=== PATIENT | male | born 1940 | race Caucasian/White ===

== ENCOUNTER 2020-05-31 16:12 | Emergency (ER) | payer MEDICARE, OTHER, SELFPAY ==
[2020-05-31 16:17] VITALS: BP 115/72; PULSE 71; RESP 16; TEMP 36.4; O2SAT 96; BMI 26.4
--- NOTE | 2020-05-31 16:44 | DI.CT.S_ITS ---
PROCEDURE: CT ABDOMEN PELVIS W CON INDICATIONS: rlq pain TECHNIQUE: After the administration of intravenous contrast, 5 mm thick sections acquired from the diaphragm to the symphysis. 5 mm coronal and sagittal reformats were acquired. For radiation dose reduction, the following was used: automated exposure control, adjustment of mA and/or kV according to patient size. COMPARISON: None. FINDINGS: Image quality: Excellent. ABDOMEN: Lung bases: Lung bases are clear. Calcified plaques noted in the lung bases. Heart size is normal. Atherosclerotic calcifications noted in the visualized coronary vasculature. Solid organs: Liver is normal in size and enhancement. 2.3 centimeter hepatic cyst. Diffuse fatty infiltration of the liver. Gallbladder is within normal limits Biliary system is non dilated. Pancreas enhances normally. Spleen is normal in size and enhancement. 2.0 and 2.8 centimeter right adrenal nodules which have density measurements of 40 5:00 a.m. 48 Hounsfield units, respectively. Kidneys demonstrate normal size and enhancement, without hydronephrosis. Peritoneum and bowel: Bowel loops demonstrate normal wall thickness and caliber. No free fluid or air. The appendix is normal. Nodes and vessels: No retroperitoneal or mesenteric adenopathy by size criteria. Moderate amount of stool noted in the colon. Aorta and inferior vena cava are normal in size. Scattered atherosclerotic calcifications involving the abdominal and pelvic vasculature. Miscellaneous: No ventral hernias. PELVIS: Genitourinary: Bladder wall thickness is normal. Miscellaneous: No inguinal adenopathy. Small bilateral fat containing inguinal hernias. Bones: Lumbosacral spine fixation hardware. No suspicious bony lesions. No vertebral body compression fractures. Spine degenerative disc disease and facet arthropathy. Severe bilateral hip osteoarthritis. IMPRESSION: 1. Appendix is normal. 2. No free intraperitoneal fluid or air. 3. No dilated loops of bowel. 4. Moderate fecal loading throughout the colon. 5. 2.0 and 2.8 centimeter soft tissue density right adrenal nodules. Malignancy cannot be excluded. Recommend dedicated CT scan of the abdomen with and without contrast (adrenal protocol) or MRI adrenal protocol for definitive characterization when clinically feasible. 6. Calcified bibasilar pleural plaques concerning for specific related disease. 7. Atherosclerosis including dense atherosclerotic calcifications in the visualized coronary vasculature. 8. Fat containing bilateral inguinal hernias. Dictated by: Amaya Carson MD, PhD on 05/31/2020 at 17:21 Approved by: Amaya Carson MD, PhD on 05/31/2020 at 17:27
[2020-05-31 16:49] LABS: Add Manual Diff / Slide Review NO; Basophils Absolute Auto 100 /uL (0-100); Basophils Percent Auto 1.2 % (0-2); Eosinophils Absolute Auto 100 /uL (0-450); Eosinophils Percent Auto 1.2 % (2-4); Hematocrit 44.8 % (41-53); Hemoglobin 15.5 g/dL (13.5-17.5); Lymphocytes Absolute Auto 1800 /uL (1100-4500); Lymphocytes Percent Auto 27.1 % (25-40); Mean Corpuscular HGB Conc 34.6 % (30-36); Mean Corpuscular Hemoglobin 32.4 PG (26-34); Mean Corpuscular Volume 93.5 fL (80-100); Monocytes Absolute Auto 500 /uL (0-900); Monocytes Percent Auto 8.2 % (3-14); Neutrophils Absolute Auto 4100 /uL (1500-7000); Neutrophils Percent Auto 62.3 % (50-75); Platelet Count 218 X10^3/uL (150-400); Red Cell Distribution Width 13.4 % (11.6-14.8); White Blood Cell Count 6.6 X10^3/uL (4.5-11.0)
[2020-05-31] MEDS: MORPHINE 2 MG/ML INJ IV (16:52)
[2020-05-31] MEDS: SODIUM CHLORIDE 0.9% 1,000 ML 150 ML IV (16:53)
[2020-05-31 16:55] VITALS: PULSE 56; O2SAT 100
[2020-05-31 16:59] LABS: Alanine Aminotransferase 22 IU/L (<50); Albumin 4.5 g/dL (3.5-5.0); Albumin Globulin Ratio 1.2 (1.0-2.8); Alkaline Phosphatase 87 U/L (38-126); Aspartate Aminotransferase 33 IU/L (17-59); Bilirubin Total 0.6 mg/dL (0.2-1.3); Blood Urea Nitrogen 16 mg/dL (9-20); Carbon Dioxide 25 mmol/L (22-32); Chloride 105 mmol/L (98-107); Estimated Glomerular Filt Rate > 60.0 mL/min (>60); Globulin 3.8 g/dL (1.7-4.1); Glucose 97 mg/dL (80-110); HEMOLYSIS 15 (0-50); Lipase 70 U/L (23-300); Potassium 4.3 mmol/L (3.4-5.1); Sodium 140 mmol/L (137-145); Total Protein 8.3 g/dL (6.3-8.2)
[2020-05-31 17:00] VITALS: BP 109/63
--- NOTE | 2020-05-31 17:08 | ED_ITS ---
HPI - Abdominal Pain General Chief Complaint: Abdominal Pain Stated Complaint: abd pain - sent by MD Time Seen by Provider: 05/31/20 16:13 Source: patient Mode of arrival: Ambulatory Limitations: no limitations History of Present Illness HPI narrative: Patient is a gene 80-year-old male who presents with right low er quadrant pain ongoing for about the last 1 week. He says it is not really going away he feels of band kind of around his abdomen. No nausea vomiting no bloody stools or diarrhea. He has not had any fever or chills. Nothing seems to make it better or worse all the moving does hurt. MD complaint: abdominal pain Onset (ago): week(s) (1) Pain Consistency: constant Location: RLQ Quality: sharp Related Data Allergies Allergy/AdvReac Type Severity Reaction Status Date / Time No Known Drug Allergies Allergy Verified 05/31/20 16:23 Review of Systems Review of Systems Narrative: GENERAL: Denies chills, fatigue, malaise, fever, sweats, travel HEENT: Denies sinus pain, ear pain, sore throat, difficulty swallowing, neck pain RESPIRATORY: Denies dyspnea, cough, wheezing, hemoptysis, sputum. CARDIOVASCULAR: Denies chest pain, palpitations, orthopnea, edema GASTROINTESTINAL: See HPI : Denies dysuria, frequency, incontinence, hematuria, urinary retention, flank pain. MUSCULOSKELETAL: Denies weakness, joint pain, or bony pain SKIN: No rash, no erythema, no pruritus NEUROLOGIC: Denies weakness, dizziness, headache, numbness, change in speech, confusion PSYCHIATRIC: No concerning psychosocial issues. 12 point review of systems is negative except for those stated above and HPI Patient History Medical History Patient denies medical problems Social History Smoking Status: Former smoker Smoking Status: Former smoker alcohol intake frequency: 0-2 drinks per day Substance Use Type: does not use Exam Initial Vital Signs Initial Vital Signs: Vital Signs Temperature 97.6 F 05/31/20 16:17 Pulse Rate 71 05/31/20 16:17 Respiratory Rate 16 05/31/20 16:17 Blood Pressure 115/72 05/31/20 16:17 Pulse Oximetry 96 05/31/20 16:17 GENERAL: Alert pleasant 80 and in no acute distress. HEENT: Head atraumatic,EOMI, pupils reactive, face symmetric, moist mucous membranes CARDIOVASCULAR: Regular rate and rhythm without murmurs, rubs or gallops. RESPIRATORY: Breath sounds equal bilaterally, no wheezes rales or rhonchi. ABDOMEN: Soft, tender right lower quadrant no guarding rebound EXTREMITIES: Normal range of motion, no clubbing or edema. Neurovascularly intact NEUROLOGICAL: Alert and oriented x4.Normal gait and speech. Cranial nerves II through XII grossly intact. SKIN: Warm, dry, no laceration, no petechiae, no rashes or lesions. Course Orders Ordered: ED Orders 05/31/20 16:32 Complete Blood Count AUTO DIFF Stat Comprehensive Metabolic Panel Stat Lipase Stat 05/31/20 16:44 CT abdomen pelvis w con Stat Sodium Chloride (Normal Saline 0.9%) 1,000 mls @ 150 mls/hr IV CONT AJ Last Admin: 05/31/20 16:53 Dose: 150 mls/hr Documented by: BEN Discontinued Medications Morphine Sulfate (Morphine 2 Mg/Ml Inj) 2 mg IV NOW ONE Stop: 05/31/20 16:44 Last Admin: 05/31/20 16:52 Dose: 2 mg Documented by: BEN Vital Signs Vital signs: Vital Signs - 8 hr 05/31/20 16:17 05/31/20 16:55 05/31/20 17:00 Temperature 97.6 F Pulse Rate 71 56 L Respiratory Rate 16 Blood Pressure 115/72 109/63 Pulse Oximetry 96 100 05/31/20 17:22 05/31/20 17:30 Temperature Pulse Rate 61 Respiratory Rate Blood Pressure 135/65 116/62 Pulse Oximetry 99 MDM - Abdominal Pain Lab Data Attestation: I reviewed the patient's lab results. Result diagrams: 05/31/20 16:32 05/31/20 16:32 Labs: Lab Results 05/31/20 05/31/20 Range/Units 16:32 16:32 WBC 6.6 (4.5-11.0) X10^3/uL RBC 4.80 (4.5-5.9) X10^6/uL Hgb 15.5 (13.5-17.5) g/dL Hct 44.8 (41-53) % MCV 93.5 (80-100) fL MCH 32.4 (26-34) PG MCHC 34.6 (30-36) % RDW 13.4 (11.6-14.8) % Plt Count 218 (150-400) X10^3/uL Neut % (Auto) 62.3 (50-75) % Lymph % (Auto) 27.1 (25-40) % [place] % (Auto) 8.2 (3-14) % Eos % (Auto) 1.2 L (2-4) % Baso % (Auto) 1.2 (0-2) % Neut # (Auto) 4100 (5056-9738) /uL Lymph # (Auto) 1800 (9266-4568) /uL [place] # (Auto) 500 (0-900) /uL Eos # (Auto) 100 (0-450) /uL Baso # (Auto) 100 (0-100) /uL Sodium 140 (137-145) mmol/L Potassium 4.3 (3.4-5.1) mmol/L Chloride 105 (98-107) mmol/L Carbon Dioxide 25 (22-32) mmol/L BUN 16 (9-20) mg/dL Creatinine 0.89 (0.66-1.25) mg/dL Estimated GFR > 60.0 (>60) mL/min BUN/Creatinine Ratio 18.0 (6-22) Glucose 97 (80-110) mg/dL Calcium 10.0 (8.4-10.2) mg/dL Total Bilirubin 0.6 (0.2-1.3) mg/dL AST 33 (17-59) IU/L ALT 22 (<50) IU/L Alkaline Phosphatase 87 (38-126) U/L Total Protein 8.3 H (6.3-8.2) g/dL Albumin 4.5 (3.5-5.0) g/dL Globulin 3.8 (1.7-4.1) g/dL Albumin/Globulin Ratio 1.2 (1.0-2.8) Lipase 70 (23-300) U/L Point of care testing: Urine Dip Bedside Urine Glucose Negative Bedside Urine Bilirubin - Negative Bedside Urine Ketone - Negative Urine Specific [place] 1.025 Bedside Urine Occult Blood - Negative Bedside Urine pH 6 Bedside Urine Protein - Negative Bedside Urine Urobilinogen - Negative Bedside Urine Nitrite - Negative Bedside Urine Leukocytes - Negative Esterase Imaging Data CT scan - abdomen/pelvis: Radiologist's Impression: PROCEDURE: CT ABDOMEN PELVIS W CON INDICATIONS: rlq pain TECHNIQUE: After the administration of intravenous contrast, 5 mm thick sections acquired from the diaphragm to the symphysis. 5 mm coronal and sagittal reformats were acquired. For radiation dose reduction, the following was used: automated exposure control, adjustment of mA and/or kV according to patient size. COMPARISON: None. FINDINGS: Image quality: Excellent. ABDOMEN: Lung bases: Lung bases are clear. Calcified plaques noted in the lung bases. Heart size is normal. Atherosclerotic calcifications noted in the visualized coronary vasculature. Solid organs: Liver is normal in size and enhancement. 2.3 centimeter hepatic cyst. Diffuse fatty infiltration of the liver. Gallbladder is within normal limits Biliary system is non dilated. Pancreas enhances normally. Spleen is normal in size and enhancement. 2.0 and 2.8 centimeter right adrenal nodules which have density measurements of 40 5:00 a.m. 48 Hounsfield units, respectively. Kidneys demonstrate normal size and enhancement, without hydronephrosis. Peritoneum and bowel: Bowel loops demonstrate normal wall thickness and caliber. No free fluid or air. The appendix is normal. Nodes and vessels: No retroperitoneal or mesenteric adenopathy by size criteria. Moderate amount of stool noted in the colon. Aorta and inferior vena cava are normal in size. Scattered atherosclerotic calcifications involving the abdominal and pelvic vasculature. Miscellaneous: No ventral hernias. PELVIS: Genitourinary: Bladder wall thickness is normal. Miscellaneous: No inguinal adenopathy. Small bilateral fat containing inguinal hernias. Bones: Lumbosacral spine fixation hardware. No suspicious bony lesions. No vertebral body compression fractures. Spine degenerative disc disease and facet arthropathy. Severe bilateral hip osteoarthritis. IMPRESSION: 1. Appendix is normal. 2. No free intraperitoneal fluid or air. 3. No dilated loops of bowel. 4. Moderate fecal loading throughout the colon. 5. 2.0 and 2.8 centimeter soft tissue density right adrenal nodules. Malignancy cannot be excluded. Recommend dedicated CT scan of the abdomen with and without contrast (adrenal protocol) or MRI adrenal protocol for definitive characterization when clinically feasible. 6. Calcified bibasilar pleural plaques concerning for specific related disease. 7. Atherosclerosis including dense atherosclerotic calcifications in the visualized coronary vasculature. 8. Fat containing bilateral inguinal hernias. Dictated by: Amaya Carson MD, PhD on 05/31/2020 at 17:21 Discharge Plan Departure Patient Disposition: Home Clinical Impression: Constipation Instructions: DI for Constipation Activity Restrictions/Additional Instructions: *You have been diagnosed with abdominal pain, constipation *What to do: Increased water intake. It looks as though you are slightly constipated on your CT scan. Blood work is overall reassuring CT scan does not show any abnormalities. *Continue to take medications as directed Dulcolax 100 mg 1-2 times daily Metamucil once in the morning *Follow up with your primary care provider in 2-3 days *Return to ER if you should have increasing pain, vomiting, fever or any new, worsening or concerning symptoms
[2020-05-31 17:22] VITALS: BP 135/65
[2020-05-31 17:30] VITALS: BP 116/62; PULSE 61; O2SAT 99
[2020-05-31 18:00] VITALS: BP 120/67; PULSE 60; RESP 15; O2SAT 99
== END 2020-05-31 18:25 | disposition home or self-care (01) ==
PROVIDERS: Emergency Provider Emergency Medicine
DX: K59.00 Constipation, unspecified (principal)
CPT/HCPCS: 36415; 74177; 80053; 81003; 83690; 85025; 96361; 96374; 99284; J2270; Q9967